=== PATIENT | female | born 1990 | race Caucasian/White ===

== ENCOUNTER 2018-02-12 12:14 | Inpatient (IN) | payer OTHER, SELFPAY ==
[2018-02-12] MEDS: LACTATED RINGERS 1,000 ML 100 ML IV ×2 (12:25→13:40)
--- NOTE | 2018-02-12 12:43 | PM.OBHP.1 ---
OB HPI Date/Time Date of admission: 02/12/18 Date Patient Seen: 02/12/18 Time Patient Seen: 12:31 History of Present Illness Chief complaint: OBSERVATION OF LABOR : 1 Para: 0 Estimated Date of Delivery: 02/12/18 Estimated Gestational Age (weeks): 40 Narrative: YUDELKA CAMPOS is a 27 year old female, at 40 weeks gestation. Dating by LMP, consistent with 14 week US. care with Amada White, LM, CPM. Patient had planned for a home however was transferred to [facility] after failure to progress beyond 9.5 cm for several hours. SROM occurred 02/11/18 at 11:30 AM with clear fluid. Active labor began 02/12/18 at 1:30 AM. By 6:30 AM patient had an anterior lip. Patient and napper grinder tried multiple position changes and reduction of the lip with pushing without success. FHT were reassuring throughout labor. Patient is requesting an epidural. Patient had regular care. She was treated for 4 UTIs during with negative urine cultures in November. No further infections. History of Present care: good care Dating criteria: LMP confirmed by 2nd trimester US Ultrasounds: normal mid trimester US Obstetrical complications: none Medical complications: other (UTI x4) Preadmission Labs Blood type: O (+) positive -: Antibody screen: negative, GBS status: negative, HBsAG: negative, HIV: negative and RPR/VDLR: negative -: Chlamydia screen: not detected and Gonorrhea screen: not detected -: Rubella: immune HCT: 38.2 PAP: Normal 1 hr GTT: 84 Evaluation Evaluation Baseline heart rate: 130 Variability: Moderate (11-25) monitor accelerations: Present monitor decelerations: Absent Contraction Frequency (minutes): 2 Uterine Contraction Intensity: Strong/Firm Category of Tracing: I Cervical dilation (cm): 9 Cervical effacement (%): 100 station: 0 PFSH Medical History Anxiety (Acute) Chicken pox (Acute) Family History Other Diabetes mellitus Hypertension Social History marital status: Smoking Status: Never smoker alcohol intake: former substance use type: does not use Meds Home Medications Medication Instructions Recorded Confirmed Type [id number] fumarate-FA 1 tab PO DAILY 02/12/18 02/12/18 History [] Allergies Allergy/AdvReac Type Severity Reaction Status Date / Time No Known Drug Allergies Allergy Verified 02/12/18 15:39 Review of Systems Review of Systems All systems reviewed & are unremarkable except as noted in HPI and below Exam Const General: healthy appearing and in distress HENMT Head: normal to inspection Ears: hearing grossly normal bilaterally Nose: external nose normal Face and sinus: normal facial exam Mouth: oral mucosae normal Teeth and gingiva: dentition normal Throat: posterior oropharynx normal Eyes General: appearance normal, both eyes and all related structures Neck Neck: normal visual inspection Resp Effort & Inspection: normal respiratory effort Auscultation: clear to auscultation bilaterally Cardio Rate: regular rate Rhythm: regular rhythm Heart Sounds: S1 normal and S2 normal External Female Exam: external appearance normal Presentation: vertex Estimated Weight (lbs): 8 Extrem General: normal to inspection and no pedal edema Objective Labs Result Diagrams: 02/12/18 12:31 Assessment and Plan (1) 40 weeks gestation of : Current visit: Yes Status: Acute Plan: Plan: 27 year old at 40 weeks gestation in active labor with ROM for 24 hours, GBS negative. Unfortunately labor has stalled at 9 cm for several hours outside of the hospital. FHT reassuring. Plan - Epidural now - Will start pitocin if no change with epidural and peanut ball - Consider antibiotics due to >24 hour ROM Back up OB Dr. Kapadia aware of patient due to possible need for section.
[2018-02-12 13:04] LABS: Hematocrit 39.3 % (36-46); Hemoglobin 13.3 g/dL (12.0-16.0); Mean Corpuscular HGB Conc 33.9 % (30-36); Mean Corpuscular Hemoglobin 31.9 PG (26-34); Mean Corpuscular Volume 94.3 fL (80-100); Platelet Count 170 X10^3/uL (150-400); Red Blood Cell Count 4.17 X10^6/uL (4.0-5.2); Red Cell Distribution Width 13.2 % (11.6-14.8); White Blood Cell Count 27.1 X10^3/uL (4.5-11.0)
[2018-02-12 13:05] LABS: Add Manual Diff / Slide Review YES
[2018-02-12 13:25] LABS: Neutrophils Absolute Manual 24119 /uL (3000-5900); RBC Morphology Normal Morphology; Total Cells Counted 100
[2018-02-12] MEDS: CEFAZOLIN 2 GM/100 ML FROZ.PIGGY IV (14:58)
[2018-02-12 15:37] VITALS: BP 150/99
--- NOTE | 2018-02-12 18:54 | PM.OBPRVD ---
Delivery date: 02/12/18 Narrative: VAGINAL DELIVERY NOTE BRIEF HISTORY: Patient is a 27-year-old at 40 weeks who gave on 02/12/18 at 18:12. SHERMAN: 02/12/18 Hospital problems: 40 weeks gestation Prolonged rupture of membranes STAGE I: Labor Spontaneous rupture of membranes occurred 02/11/17 at 11:30 AM with clear fluid. Active labor began 02/12/18 at 1:30 AM. Patient reach 9.5 cm at 6:30 AM. Transferred to [facility] at 12:30 PM. Epidural given. Pitocin started due to lack of cervical change. Cefazolin given due to prolonged ROM. Patient was complete at 16:04. heart tones were category 1 throughout stage 1. STAGE II: Delivery The second stage of labor lasted 2 hours and 8 minutes. Patient developed a temperature of 38.3 at 17:40 and baseline heart rate increased to 160's. Dr. Kapadia was consulted for possible vacuum. Dr. Kapadia arrived and placed a kiwi vacuum after straight catheter to empty the bladder and review of risks of procedure with patient. First vacuum attempt with pushing easily brought the head down. Dr. Crain attempted the vacuum with the next contraction but vacuum popped off. Dr. Kapadia then replaced the vacuum. There were a total of 4 pop offs however infant was successfully delivered over an intact perineum at 18:12. Presentation was direct OA then CEM. Male was vigorous at delivery and placed on mother's abdomen. Cord was clamped and cut after pulsations stopped. Apgars were 8 and 9 at one and five minutes. STAGE III: Placenta/Cord The third stage of labor lasted 4 minutes. Placenta delivered at 18:18 after active management and appeared intact with a 3 vessel cord. Parents requested to save the placenta. Pitocin bolus given after placenta. A small second degree vaginal laceration was repaired with 3-0 vicryl with good hemostasis. Uterine fundus firm. EBL: 300 mL. Needle and sponge counts were correct. The vagina was inspected and no items were left in situ. Patient was doing well with Amrik, her and partner at bedside.
--- NOTE | 2018-02-12 18:57 | P.PCNOB_ITS ---
Delivery date: 02/12/18 Narrative: VAGINAL DELIVERY NOTE BRIEF HISTORY: Patient is a 27-year-old at 40 weeks who gave on 02/12/18 at 18:12. SHERMAN: 02/12/18 Hospital problems: 40 weeks gestation Prolonged rupture of membranes STAGE I: Labor Spontaneous rupture of membranes occurred 02/11/17 at 11:30 AM with clear fluid. Active labor began 02/12/18 at 1:30 AM. Patient reach 9.5 cm at 6:30 AM. Transferred to [facility] at 12:30 PM. Epidural given. Pitocin started due to lack of cervical change. Cefazolin given due to prolonged ROM. Patient was complete at 16:04. heart tones were category 1 throughout stage 1. STAGE II: Delivery The second stage of labor lasted 2 hours and 8 minutes. Patient developed a temperature of 38.3 at 17:40 and baseline heart rate increased to 160's. Dr. Kapadia was consulted for possible vacuum. Dr. Kapadia arrived and placed a kiwi vacuum after straight catheter to empty the bladder and review of risks of procedure with patient. First vacuum attempt with pushing easily brought the head down. Dr. rCain attempted the vacuum with the next contraction but vacuum popped off. Dr. Kapadia then replaced the vacuum. There were a total of 4 pop offs however infant was successfully delivered over an intact perineum at 18: 12. Presentation was direct OA then CEM. Male infant was vigorous at delivery and placed on mother's abdomen. Cord was clamped and cut after pulsations stopped. Apgars were 8 and 9 at one and five minutes. STAGE III: Placenta/Cord The third stage of labor lasted 4 minutes. Placenta delivered at 18:18 after active management and appeared intact with a 3 vessel cord. Parents requested to save the placenta. Pitocin bolus given after placenta. A small second degree vaginal laceration was repaired with 3-0 vicryl with good hemostasis. Uterine fundus firm. EBL: 300 mL. Needle and sponge counts were correct. The vagina was inspected and no items were left in situ. Patient was doing well with Amrik, her and partner at bedside.
[2018-02-13] MEDS: DOCUSATE 250 MG CAPSULE PO (08:45)
[2018-02-13] MEDS: IBUPROFEN 600 MG TABLET PO ×2 (08:45→14:37)
[2018-02-13] MEDS: DERMOPLAST SPRAY 20% 60 ML 1 SPRAY TOP (13:40)
--- NOTE | 2018-02-13 17:19 | P.DS_ITS ---
Discharge Providers Date of admission: 02/12/18 12:14 Consults: 02/12/18 22:30 Consult to Field Marketing Lead Routine Comment: Discharge provider: Rachel Crain DO Summary Date Patient Seen: 02/13/18 Time Patient Seen: 13:00 Hospital Course: Patient is a 27-year-old G1 now P1 who delivered at 40 weeks gestation on at 6:12 p.m. via vacuum assisted vaginal delivery. Patient had planned for a home however transferred to [facility] after labor stalled at 9.5 cm. Upon admission to the hospital she received an epidural for pain control and Pitocin augmentation. Rupture of membranes occurred 24 hr prior to hospital admission so patient received 2 g of cefazolin. She progressed to complete and pushed for 1.5 hr when she developed a temperature of 38.3? and tachycardia. Dr. Kapadia was called for consultation and delivered the infant with a vacuum. Infant was vigorous at delivery and did not require resuscitation. Maternal temperature immediately after delivery was 38.9 so the decision was made to continue antibiotics for 24 hr. Patient did not have further fevers during her stay. course was uncomplicated. Bleeding was moderate. Pain well controlled with minimal ibuprofen. She was ambulating , eating and voiding without difficulty. reportedly going well. Counseled patient to call for fevers, bleeding through more than a pad an hour or severe pain. She will follow up in clinic in six weeks. Exam Temperature 97.2?, blood pressure 113/69, heart rate 94, respirations 14 General: Awake and alert, no acute distress. HEENT: NCAT, EOMI, moist oral mucosa CV: Regular rate and rhythm, no murmurs, rubs or gallops Lungs: CTAB, no wheezes, rales, or rhonchi Abdomen: Soft, nontender; bowel tones active; uterus firm 1 cm below umbilicus Extremities: Warm, no edema, 2+ pedal pulses bilaterally Discharge Diagnosis (1) 40 weeks gestation of : Status: Acute Time Spent with Patient Total time spent providing and/or coordinating discharge services: Objective Labs Result Diagrams: 02/12/18 12:31 Discharge Plan Discharge Plan Patient Disposition: Home, Self-Care Discharge Med Rec/Prescriptions Prescriptions: New docusate sodium 250 mg Capsule 250 mg PO DAILY Qty: 30 RF: 0 Continue [id number] fumarate-FA [] 28-800 mg-mcg Tablet 1 tab PO DAILY RF: 0 Follow up/Referrals: Rachel Crain DO [Physician] - 6 Weeks (Please call the clinic to schedule appt [facility] [phone]) Visit Report/Discharge Packet Stand Alone Forms: Discharge: Care Visit Report Forms: Stroke Signs & Symptoms Discharge Data Attending Provider: Rachel Crain Admit Date/Time: 02/12/18 12:14 Discharges patient from system. Discharge Date/Time: 02/13/18 20:06
[2018-02-13 18:11] VITALS: BP 113/69; PULSE 94; RESP 16; TEMP 36.2
== END 2018-02-13 20:06 | disposition home or self-care (01) | DRG 775 ==
PROVIDERS: Admitting Provider Family Medicine; Visit Provider Family Medicine
DX: O62.1 Secondary uterine inertia (principal); Z3A.40 40 weeks gestation of pregnancy; Z37.0 Single live birth; O70.1 Second degree perineal laceration during delivery
CPT/HCPCS: 01967; 59050; 59409; 76815; 85025; 86850; 86900; 86901; 99222; 99238; G0379; J0690

== ENCOUNTER → 2020-06-04 15:09 | Outpatient (CLI) | payer BC, SELFPAY ==
--- NOTE | 2020-06-04 | DI.US.S_ITS ---
PROCEDURE: US OB >= 14 WEEKS FETUS INDICATIONS: 20 week Anatomy scan OUTSIDE/PRIOR DATING DATA: Last menstrual period (LMP): 01/17/2020. LMP-based estimated date of delivery (SHERMAN): 10/23/2020. First dating scan (date and location): 06/04/2020 at [facility]. Estimated date of delivery (SHERMAN) from first dating scan: 10/20/2020. TECHNIQUE: Real-time scanning was performed of the fetus, with image documentation and biometric measurements. Endovaginal scanning: Not performed. COMPARISON: None. FINDINGS: General: A single living intrauterine gestation is present. Presentation: Cephalic Placenta: Placental position is anterior. The lower placental edge is located approximately 7 mm from the internal cervical os. Amniotic fluid index: 15.6 cm, normal range is 5-24 cm. heart rate: 149 beats per minute. Maternal cervical canal: 3.5 cm long. Normal lower limit is 2.5 cm. There is [id number] right hydronephrosis. biometrics: Biparietal diameter: 4.7 cm, 20 weeks 1 day Head circumference: 17.8 cm, 20 weeks 2 days Abdominal circumference: 15.5 cm, 20 weeks 5 days Femur length: 3.2 cm, 20 weeks 2 days Estimated gestational age from initial scan: not applicable. Composite gestational age from present scan: 20 weeks 2 days Estimated weight and percentile: 349 g, 74th percentile Measurement variability for biometric dating: +/- 7 days from 14 weeks to 15 weeks 6 days gestation, +/- 10 days from 16 weeks to 21 weeks 6 days gestation, +/- 2 weeks from 22 weeks to 27 weeks 6 days gestation, +/- 3 weeks for 28 weeks gestation or later. weight reference: 4500 g or EFW >90/95% is considered macrosomia or large for gestational age. EFW <10% is small for gestational age. EFW 5% or less is considered intra-uterine growth restriction. Anatomic survey: Neuro: Ventricles are non-dilated at less than 10 mm. Cisterna magna is normal at 3-11 mm. Cerebellum is normal in size and morphology. Nuchal skin fold: Normal at less than 6 mm between 14-21 weeks gestational age. Face: Nose and lips, facial profile are normal. Spine: No evidence for spina bifida. Heart: 4-chambered heart is present, with normal ventricular outflow tracts. Diaphragm: Diaphragm is intact. Stomach: Left-sided stomach is present. Kidneys: No hydronephrosis. Normal is less than 5 mm in 2nd trimester, less than 7 mm in 3rd trimester. Cord: 3-vessel cord has orthotopic insertion. Bladder: Normal in size. Extremities: All 4 extremities identified. IMPRESSION: 1. Single live intrauterine . Normal anatomic survey. 2. Low lying placenta located less than 1 cm from the internal cervical os. Recommend continued attention on follow-up exams. 3. [id number] right hydronephrosis. Dictated by: Jaylen Gama M.D. on 06/04/2020 at 18:02 Approved by: Jaylen Gama M.D. on 06/04/2020 at 18:11
== END ==
PROVIDERS: PCP Midwife; Referring Provider Midwife; Visit Provider Midwife
DX: Z36.89 Encounter for other specified antenatal screening (principal); Z3A.20 20 weeks gestation of pregnancy
CPT/HCPCS: 76811

== ENCOUNTER 2020-10-14 17:14 | Observation (INO) | payer BC, SELFPAY ==
[2020-10-14] VITALS (9 sets, daily range): BP systolic 108–152; BP diastolic 70–100; PULSE 72–94; RESP 16–20; TEMP 36.4–37.1; O2SAT 96–100; BMI 30.6
--- NOTE | 2020-10-14 17:19 | PM.HP.1 ---
History of Present Illness History of Present Illness Date Patient Seen: 10/14/20 Time Patient Seen: 17:45 Chief complaint: hypertension Narrative: Patient is a 30-year-old 4 days after uncomplicated spontaneous vaginal delivery at 38 weeks and 2 days at [facility] in [place]. She was followed Amada White CNM throughout her . At her 38 week OB appointment her blood pressure was mildly elevated at the 140s over 90s. Her staff air defense officer encouraged efforts to induce labor. Membranes were swept and she was given castor oil. She went into labor on 10/09/20 and labored at the center in [place]. She made it to complete and pushing however descent stalled so she was transferred to [facility]. She went on to receive an epidural and eventually delivered a vigorous female in the direct occiput posterior position. blood pressures were reportedly mildly elevated however preeclampsia labs normal. She discharged home just over 24 hours after delivery. Yesterday her staff air defense officer checked her at home and her blood pressure was again mildly elevated in the 140s over 90s. Her staff air defense officer advised her to check her blood pressure later yesterday and it was 150/100. Yesterday she also had a headache and some swelling in her legs. Today she brought her to clinic for a check and requested to be seen for blood pressure as well. Her initial blood pressure in clinic was 174/96. It came down to 150/92. Today she rates her headache at a 5/10 but states the pain varies. Denies right upper quadrant pain or vision changes. She continues to have edema in her legs but feels that it is improving. She is without difficulty and is doing well. Patient History Medical History Anxiety Chicken pox Spontaneous vaginal delivery Family & Social History Family History Other Diabetes mellitus Hypertension Tobacco & Substance use: Smoking Status Never smoker alcohol intake former Meds Home Medications and Allergies Home Medications Medication Instructions Recorded Confirmed Type [id number] fumarate-FA 1 tab PO DAILY 02/12/18 02/12/18 History [] docusate sodium 250 mg PO DAILY #30 cap 02/13/18 Rx Allergies Allergy/AdvReac Type Severity Reaction Status Date / Time No Known Drug Allergies Allergy Verified 02/12/18 15:39 Review of Systems Review of Systems ROS: Yes All systems reviewed with the patient and are negative except as otherwise documented Exam Narrative Exam Narrative: General appearance: Well-appearing, NAD Head: Normocephalic, atraumatic, without obvious abnormality. Eyes: Conjunctivae/corneas clear. PERRL, EOM's intact. Ears: External ears normal bilaterally. Lungs: Clear to auscultation bilaterally, no wheezes or crackles. Heart: Regular rate and rhythm, S1, S2 normal, no murmur. Abdomen: Bowel tones active x4. Soft, nontender, nondistended. Extremities: Extremities normal, atraumatic, trace edema bilaterally. Neurologic: Normal coordination and gait. 3/4 patellar reflexes bilaterally. No clonus. Objective Labs Result Diagrams: 10/14/20 17:28 10/14/20 17:28 Assessment & Plan Assessment & Plan narrative: 30 year old 4 days after at 38 weeks and 2 days now with hypertension, edema and headache concerning for pre-eclampsia. Initial blood pressures in the center were 150s over 90s which came down to 130s over 90s. She reports her headache is worse in the center than it was in the clinic. Plan Appreciate consultation and recommendations by Dr. Wheeler. Patient will be admitted for serial blood pressures and stat labs for preeclampsia. Patient and her are aware of the possible need for magnesium should she develop severe features or labs return abnormal. Hopefully she can be monitored overnight and potentially discharge home in the morning if workup is reassuring.
[2020-10-14 17:41] LABS: Add Manual Diff / Slide Review NO; Basophils Absolute Auto 100 /uL (0-100); Basophils Percent Auto 0.5 % (0-2); Eosinophils Absolute Auto 100 /uL (0-450); Eosinophils Percent Auto 1.1 % (2-4); Hematocrit 39.5 % (36-46); Hemoglobin 13.1 g/dL (12.0-16.0); Lymphocytes Absolute Auto 1900 /uL (1100-4500); Lymphocytes Percent Auto 16.8 % (25-40); Mean Corpuscular HGB Conc 33.1 % (30-36); Mean Corpuscular Hemoglobin 31.3 PG (26-34); Mean Corpuscular Volume 94.5 fL (80-100); Monocytes Absolute Auto 500 /uL (0-900); Monocytes Percent Auto 4.9 % (3-14); Neutrophils Absolute Auto 8500 /uL (1500-7000); Neutrophils Percent Auto 76.7 % (50-75); Platelet Count 213 X10^3/uL (150-400); Red Blood Cell Count 4.18 X10^6/uL (4.0-5.2); Red Cell Distribution Width 13.3 % (11.6-14.8); White Blood Cell Count 11.1 X10^3/uL (4.5-11.0)
[2020-10-14 17:53] LABS: Alanine Aminotransferase 37 IU/L (<35); Albumin 4.1 g/dL (3.5-5.0); Albumin Globulin Ratio 1.2 (1.0-2.8); Alkaline Phosphatase 178 U/L (38-126); Aspartate Aminotransferase 43 IU/L (14-36); BUN Creatinine Ratio 19.4 (6-22); Bilirubin Total 0.2 mg/dL (0.2-1.3); Blood Urea Nitrogen 12 mg/dL (7-17); Calcium 9.8 mg/dL (8.4-10.2); Carbon Dioxide 24 mmol/L (22-32); Chloride 107 mmol/L (98-107); Estimated Glomerular Filt Rate > 60.0 mL/min (>60); Globulin 3.4 g/dL (1.7-4.1); Glucose 98 mg/dL (70-100); HEMOLYSIS < 15 (0-50); Sodium 139 mmol/L (137-145); Total Protein 7.5 g/dL (6.3-8.2)
[2020-10-14] MEDS: ACETAMINOPHEN 325 MG TABLET 650 MG PO (17:56)
[2020-10-14] MEDS: NIFEdipine 10 MG CAPSULE PO (17:56)
--- NOTE | 2020-10-14 17:59 | P.CONS_ITS ---
History of Present Illness Consult details Date Patient Seen: 10/14/20 Time Patient Seen: 18:09 Chief complaint: hypertension Reason for consult: gestational hypertension versus preeclampsia Requesting provider: Rachel Crain Narrative: This patient is a 30-year-old para 2 four days status post uncomplicated vaginal delivery after induction of labor at 38 weeks for gestational hypertension, who presented to Dr. Crain's office for a checkup and reported signs and symptoms of preeclampsia. The patient's was managed by midwives working out of [facility] in [place], [place], which is where she delivered. She reports that her blood pressures prior to delivery were 130s over 80s, and that she had intermittent headaches but no other symptoms. Her had previously been uncomplicated, and these blood pressures developed in her 38th week. Baby was born weighing 7 lb 8 oz, and the delivery was uncomplicated. She was normotensive after delivery and discharged home on day 1. On day 3, she developed a headache and had blood pressures of 140s to 150s over 90s to 100s at home. She called her centrifugal separator who had her monitor her blood pressure at home, and when it remained elevated, recommended that the patient establish care with Dr. Crain at the baby's scheduled visit today. The patient's blood pressures were elevated as high as 170s over 100s in clinic, though severe range pressures were not sustained, and the patient was sent to the Center. She reports 5/10 headache but no visual changes, shortness of breath, right upper quadrant pain, or hand or face swelling. She has some leg swelling that has been present and improving since the delivery. She has not taken anything for her headache, and is not on any antihypertensive medication. She denies any complications in her 1st , a term vaginal delivery, and denies any history of hypertension prior to last week. She denies any contributory medical, surgical, family, or social history. Meds Home Medications and Allergies Home Medications Medication Instructions Recorded Confirmed Type [id number] fumarate-FA 1 tab PO DAILY 02/12/18 02/12/18 History [] docusate sodium 250 mg PO DAILY #30 cap 02/13/18 Rx Allergies Allergy/AdvReac Type Severity Reaction Status Date / Time No Known Drug Allergies Allergy Verified 02/12/18 15:39 Review of Systems Constitutional Constitutional: Reports system reviewed and no additional complaints, except as documented Cardiovascular Cardiovascular: Reports system reviewed and no additional complaints, except as documented Respiratory Respiratory: Reports system reviewed and no additional complaints, except as documented Gastrointestinal Gastrointestinal: Reports system reviewed and no additional complaints, except as documented Genitourinary Genitourinary: Reports system reviewed and no additional complaints, except as documented Musculoskeletal Musculoskeletal: Reports system reviewed and no additional complaints, except as documented Neurologic Neurologic: Reports as per HPI Exam Vital Signs (past 8 hours): 130s-150s/80s-90s in center, HR 80s Narrative Exam Narrative: Patient resting in bed, and accompanied by ralph yun. Patient alert and oriented x3, generally well appearing. Const General: cooperative, healthy appearing and comfortable Resp Effort & Inspection: normal respiratory effort Auscultation: clear to auscultation bilaterally Cardio Rate: regular rate Rhythm: regular rhythm GI Palpation: soft and No tender Neuro General: patient alert, patient awake, patient oriented x3 and CN's II-XI intact bilaterally DTR's: Rt Patellar: 2+ and Lt Patellar: 2+ Extrem Right upper extremity: normal to inspection Left upper extremity: normal to inspection Right lower extremity: edema Details: 2+ Left lower extremity: edema Details: 2+ Objective Labs Result Diagrams: 10/14/20 17:28 10/14/20 17:28 Labs: Laboratory Results - last 24 hr 10/14/20 10/14/20 17:28 17:28 WBC 11.1 H RBC 4.18 Hgb 13.1 Hct 39.5 MCV 94.5 MCH 31.3 MCHC 33.1 RDW 13.3 Plt Count 213 Neut % (Auto) 76.7 H Lymph % (Auto) 16.8 L Bland % (Auto) 4.9 Eos % (Auto) 1.1 L Baso % (Auto) 0.5 Neut # (Auto) 8500 H Lymph # (Auto) 1900 Bland # (Auto) 500 Eos # (Auto) 100 Baso # (Auto) 100 Sodium 139 Potassium 4.0 Chloride 107 Carbon Dioxide 24 BUN 12 Creatinine 0.62 Estimated GFR > 60.0 BUN/Creatinine Ratio 19.4 Glucose 98 Calcium 9.8 Total Bilirubin 0.2 AST 43 H ALT 37 H Alkaline Phosphatase 178 H Total Protein 7.5 Albumin 4.1 Globulin 3.4 Albumin/Globulin Ratio 1.2 Assessment & Plan Assessment & Plan narrative: This patient meets diagnostic criteria for gestational hypertension. The patient's headache has not been treated, and she has no lab abnormalities on bloodwork or other severe features at this time. Her blood pressures are elevated but have not been in the severe range in the Center. We discussed straight catheterization to assess proteinuria in the tting of [facility], and this will be deferred at this time due to patient comfort. The patient's blood pressures are currently being monitored every 15 minutes, and when her initial blood pressures were 150s over 90s, she was administered 10 mg of immediate release nifedipine. Right now, the patient is for 650mg tylenol and 10mg reglan, both PO, for her headache. She will be monitored with serial blood pressures and PIH labs, with further decision about severe features and therefore magnesium pending. The above was discussed with the patient and her partner at length, and we discussed the spectrum of PIH from gestational hypertension to preeclampsia with severe features and the pathophysiology of the disease. The patient and her partner vocalized understanding. - Patient for monitoring at least overnight - PIH labs in AM - BPs q15 for now, can space based on trend - 30mg XL nifedipine in AM if IR dose tolerated - Regular diet - Close monitoring for severe signs/symptoms - Notify MD if BP over 155 systolic or 105 diastolic
[2020-10-14] MEDS: METOCLOPRAMIDE HCL 10 MG TABLET PO (18:06)
[2020-10-14 18:43] LABS: COVID19 -Nasal RAPID Negative (Negative)
--- NOTE | 2020-10-14 21:05 | PC.NURSE ---
Patient BP has come down, her AGGARWAL is gone. Patient wants to know if she can go home. We discussed what we are watching for. A call placed to Dr Wheeler, She perfers the patient to stay. Discussed with patient and she said she will but she wants the IV removed. Dr Wheeler agreed.
[2020-10-14 23:17] LABS: Add Manual Diff / Slide Review NO; Basophils Absolute Auto 100 /uL (0-100); Basophils Percent Auto 0.6 % (0-2); Eosinophils Absolute Auto 100 /uL (0-450); Eosinophils Percent Auto 1.3 % (2-4); Hematocrit 35.7 % (36-46); Lymphocytes Absolute Auto 2500 /uL (1100-4500); Lymphocytes Percent Auto 21.8 % (25-40); Mean Corpuscular HGB Conc 33.5 % (30-36); Mean Corpuscular Hemoglobin 31.5 PG (26-34); Monocytes Absolute Auto 900 /uL (0-900); Monocytes Percent Auto 7.4 % (3-14); Neutrophils Absolute Auto 7900 /uL (1500-7000); Neutrophils Percent Auto 68.9 % (50-75); Platelet Count 195 X10^3/uL (150-400); Red Blood Cell Count 3.79 X10^6/uL (4.0-5.2); Red Cell Distribution Width 13.4 % (11.6-14.8); White Blood Cell Count 11.5 X10^3/uL (4.5-11.0)
[2020-10-14 23:26] LABS: Alanine Aminotransferase 31 IU/L (<35); Albumin 3.7 g/dL (3.5-5.0); Albumin Globulin Ratio 1.2 (1.0-2.8); Alkaline Phosphatase 151 U/L (38-126); Aspartate Aminotransferase 35 IU/L (14-36); Bilirubin Total 0.1 mg/dL (0.2-1.3); Blood Urea Nitrogen 14 mg/dL (7-17); Calcium 9.6 mg/dL (8.4-10.2); Carbon Dioxide 23 mmol/L (22-32); Chloride 108 mmol/L (98-107); Estimated Glomerular Filt Rate > 60.0 mL/min (>60); Globulin 3.1 g/dL (1.7-4.1); Glucose 104 mg/dL (70-100); HEMOLYSIS < 15 (0-50); Lactate Dehydrogenase 511 U/L (313-618); Potassium 4.2 mmol/L (3.4-5.1); Sodium 138 mmol/L (137-145); Total Protein 6.8 g/dL (6.3-8.2); Uric Acid 4.9 mg/dL (2.5-6.2)
--- NOTE | 2020-10-14 23:29 | PC.NURSE ---
Patient states her headache came back starting at 2230 tonight, rated her pain at 3/10. See worklist for vital signs.
[2020-10-15] VITALS (9 sets, daily range): BP systolic 140–161; BP diastolic 90–102; PULSE 72–109; RESP 15; TEMP 36.7–37; O2SAT 99
[2020-10-15] MEDS: ACETAMINOPHEN 325 MG TABLET 650 MG PO ×2 (00:05→08:51)
[2020-10-15] MEDS: IBUPROFEN 600 MG TABLET PO ×2 (00:05→08:50)
[2020-10-15] MEDS: NIFEdipine 30 MG TAB ER PO (05:27)
[2020-10-15 05:50] LABS: Alanine Aminotransferase 27 IU/L (<35); Albumin 3.4 g/dL (3.5-5.0); Albumin Globulin Ratio 1.3 (1.0-2.8); Alkaline Phosphatase 135 U/L (38-126); Aspartate Aminotransferase 29 IU/L (14-36); BUN Creatinine Ratio 22.7 (6-22); Bilirubin Total 0.2 mg/dL (0.2-1.3); Blood Urea Nitrogen 15 mg/dL (7-17); Carbon Dioxide 26 mmol/L (22-32); Chloride 107 mmol/L (98-107); Estimated Glomerular Filt Rate > 60.0 mL/min (>60); Globulin 2.7 g/dL (1.7-4.1); Glucose 92 mg/dL (70-100); HEMOLYSIS < 15 (0-50); Potassium 3.9 mmol/L (3.4-5.1); Sodium 138 mmol/L (137-145); Total Protein 6.1 g/dL (6.3-8.2)
--- NOTE | 2020-10-15 10:07 | PM.DS.1 ---
History of Present Illness History of Present Illness Chief complaint: hypertension Narrative: Patient is a 30-year-old 4 days after uncomplicated spontaneous vaginal delivery at 38 weeks and 2 days at [facility] in [place]. She was followed Amada White CNM throughout her . At her 38 week OB appointment her blood pressure was mildly elevated at the 140s over 90s. Her branch customer service representative encouraged efforts to induce labor. Membranes were swept and she was given castor oil. She went into labor on 10/09/20 and labored at the center in [place]. She made it to complete and pushing however descent stalled so she was transferred to [facility]. She went on to receive an epidural and eventually delivered a vigorous female infant in the direct occiput posterior position. blood pressures were reportedly mildly elevated however preeclampsia labs normal. She discharged home just over 24 hours after delivery. Yesterday her branch customer service representative checked her at home and her blood pressure was again mildly elevated in the 140s over 90s. Her branch customer service representative advised her to check her blood pressure later yesterday and it was 150/100. Yesterday she also had a headache and some swelling in her legs. Today she brought her to clinic for a check and requested to be seen for blood pressure as well. Her initial blood pressure in clinic was 174/96. It came down to 150/92. Today she rates her headache at a 5/10 but states the pain varies. Denies right upper quadrant pain or vision changes. She continues to have edema in her legs but feels that it is improving. She is without difficulty and is doing well. Discharge Providers Provider Date of admission: 10/14/20 17:14 Discharge Date: 10/15/20 Primary care physician: Amada White CNM Discharge provider: Rachel Crain DO Summary Hospital Course Discharge Diagnosis: -induced hypertension Hospital Course: Patient was admitted for serial blood pressures and PIH labs. Labs were remarkable for mildly elevated AST and ALT though not meeting criteria for preeclampsia. Patient declined a straight cath for urine protein so diagnosis of preeclampsia verses gestational hypertension was not completely defined. Her headache on admission resolved after Tylenol and Reglan and did not return. Blood pressure improved nicely after nifedipine trended back up after the effect wore off. Labs were trended overnight and mildly elevated transaminases trended to normal. She received 1 dose of long-acting nifedipine with mild improvement in her blood pressure though still elevated. She denied headache, vision changes, right upper quadrant pain or edema. She and her were very eager to return home. Dr. Wheeler saw her this morning and recommended staying in the hospital a bit longer until her blood pressures normalized however they declined. Dr. Wheeler recommended long-acting nifedipine 30 mg twice a day until she follows up in clinic next week and reviewed strict return precautions. Patient was advised to call for blood pressures greater than 160/110 or symptoms of preeclampsia (headaches unresponsive to Tylenol, visual changes or spots, malaise or nausea, right upper quadrant pain, chest pain or trouble breathing, or any other concerning symptoms.) The patient and her expressed their understanding. Follow-up in clinic as scheduled next week. Status at Discharge Overall status at discharge: patient is back to baseline Time Spent with Patient Time spent: Less than 30 minutes Exam Vital Signs (past 8 hours): - 10/15/20 04:00 10/15/20 06:35 10/15/20 07:34 Temperature 98.0 F Pulse Rate 72 109 H Respiratory Rate 15 Blood Pressure 159/102 H 143/99 H 161/97 H Pulse Oximetry 99 10/15/20 07:35 10/15/20 08:50 10/15/20 08:51 Temperature 98.6 F 98.6 F Pulse Rate 100 H Respiratory Rate Blood Pressure 150/95 H Pulse Oximetry 10/15/20 09:00 10/15/20 09:59 Temperature Pulse Rate Respiratory Rate Blood Pressure 140/90 148/96 H Pulse Oximetry Oxygen Flow Rate 0 Narrative Exam Narrative: General appearance: Well-appearing, NAD Head: Normocephalic, atraumatic, without obvious abnormality. Eyes: Conjunctivae/corneas clear. PERRL, EOM's intact. Ears: External ears normal bilaterally. Lungs: Clear to auscultation bilaterally, no wheezes or crackles. Heart: Regular rate and rhythm, S1, S2 normal, no murmur. Extremities: Extremities normal, atraumatic, no edema. Neurologic: Normal coordination and gait. 2/4 patellar reflexes bilaterally. Objective Labs Result Diagrams: 10/14/20 23:05 10/15/20 05:30 Labs: Laboratory Results - last 24 hr 10/14/20 10/14/2010/14/21 17:28 17:28 18:15 WBC 11.1 H RBC 4.18 Hgb 13.1 Hct 39.5 MCV 94.5 MCH 31.3 MCHC 33.1 RDW 13.3 Plt Count 213 Neut % (Auto) 76.7 H Lymph % (Auto) 16.8 L [place] % (Auto) 4.9 Eos % (Auto) 1.1 L Baso % (Auto) 0.5 Neut # (Auto) 8500 H Lymph # (Auto) 1900 [place] # (Auto) 500 Eos # (Auto) 100 Baso # (Auto) 100 Sodium 139 Potassium 4.0 Chloride 107 Carbon Dioxide 24 BUN 12 Creatinine 0.62 Estimated GFR > 60.0 BUN/Creatinine Ratio 19.4 Glucose 98 Uric Acid Calcium 9.8 Total Bilirubin 0.2 AST 43 H ALT 37 H Alkaline Phosphatase 178 H Lactate Dehydrogenase Total Protein 7.5 Albumin 4.1 Globulin 3.4 Albumin/Globulin Ratio 1.2 SARS-CoV-2 (PCR) Negative 10/14/20 10/14/20 10/15/20 23:05 23:05 05:30 WBC 11.5 H RBC 3.79 L Hgb 12.0 Hct 35.7 L MCV 94.0 MCH 31.5 MCHC 33.5 RDW 13.4 Plt Count 195 Neut % (Auto) 68.9 Lymph % (Auto) 21.8 L [place] % (Auto) 7.4 Eos % (Auto) 1.3 L Baso % (Auto) 0.6 Neut # (Auto) 7900 H Lymph # (Auto) 2500 [place] # (Auto) 900 Eos # (Auto) 100 Baso # (Auto) 100 Sodium 138 138 Potassium 4.2 3.9 Chloride 108 H 107 Carbon Dioxide 23 26 BUN 14 15 Creatinine 0.70 0.66 Estimated GFR > 60.0 > 60.0 BUN/Creatinine Ratio 20.0 22.7 H Glucose 104 H 92 Uric Acid 4.9 Calcium 9.6 9.0 Total Bilirubin 0.1 L 0.2 AST 35 29 ALT 31 27 Alkaline Phosphatase 151 H 135 H Lactate Dehydrogenase 511 Total Protein 6.8 6.1 L Albumin 3.7 3.4 L Globulin 3.1 2.7 Albumin/Globulin Ratio 1.2 1.3 SARS-CoV-2 (PCR) [facility] Medical History Anxiety Chicken pox Spontaneous vaginal delivery Family History Other Diabetes mellitus Hypertension Social History marital status: household members: spouse and children Smoking Status: Never smoker alcohol intake: former substance use type: does not use Discharge Plan Discharge Plan Patient Disposition: Home Discharge orders & Medications Prescriptions: New nifedipine 30 mg tablet extended release 30 mg PO BID Qty: 60 RF: 1 metoclopramide HCl [Reglan] 10 mg tablet 10 mg PO Q6H PRN (Reason: headache) Qty: 30 RF: 0 Continued 28-800 mg-mcg Tablet 1 tab PO DAILY RF: 0 docusate sodium 250 mg Capsule 250 mg PO DAILY Qty: 30 RF: 0 Follow up/Referrals: Rachel Crain DO [Physician] - 3-5 Days (Please follow up with Dr. Crain on October 21 at 3:30pm. If you have any questions/concerns or need to reschedule please call .) Amada White CNM [Primary Care Provider] - Diet/Activity/Treatments Diet: Regular Activity: If you have blood pressures over 160/110, headaches, visual changes, increasing swelling, increasing abdominal pain, trouble breathing or chest pain, or any other concerning symptoms or questions, call [phone] and speak to the physician electronic masking system operator or come to the emergency room. Skin/Wound/Dressing Care Report to your healthcare provider any signs of infection, such as:: chills, fever, night sweats, increased pain, unusual drainage and unusual redness Visit Report/Discharge Packet Visit Report Forms: Patient Portal/API, Stroke Signs & Symptoms Discharge Data Primary Care Provider: Amada White Attending Provider: Rachel Crain Admit Date/Time: 10/14/20 17:14 Discharges patient from system. Discharge Date/Time: 10/15/20 11:40 Quality VTE Deep Vein Thrombosis/Pulmonary Embolism Present on Admission: No MIPS - Admit Advanced Care Plan / Current Medications Measures: #47 ? Advanced Care Plan Clinician documentation instruction: document at admission. [] I confirmed that the patient's Advance Care Plan is present, code status is documented, or surrogate decision maker is listed in the patient?s medical record. [SATISFIES MIPS PERFORMANCE] If Yes, Stop Here [] The patient?s Advance Care plan is not present because: (select) [MIPS PERFORMANCE EXCEPTION/EXCLUSION] [] I confirmed today that the patient does not wish or was not able to name a surrogate decision maker or provide an Advance Care Plan. [] Hospice care is currently being provided or has been provided this calendar year [] I did NOT confirm today the presence of an Advance Care Plan or surrogate decision maker documented within the patient's medical record. [DOES NOT SATISFY MIPS PERFORMANCE] #130 - Documentation of Current Medications in the Medical Record Clinician documentation instruction: use macro the first time you see a patient. [] I have utilized all available immediate resources to obtain, update, or review the patient?s current medications. [SATISFIES MIPS PERFORMANCE] If Yes, Stop Here [] The patient is not eligible for medication reconciliation; the patient is in an emergent medical situation where delaying treatment would jeopardize the patient?s health. [MIPS PERFORMANCE EXCEPTION/EXCLUSION] [] I did NOT confirm, update or review the patient's current list of medications today. [DOES NOT SATISFY MIPS PERFORMANCE] MIPS - CL Central Venous Catheter Placement Measure: #76 ? Prevention of Central Venous Catheter (CVC) ? Related Bloodstream Infection Clinician documentation instruction: use macro every time you place a central line. [] All elements of Maximal Sterile Barrier Technique, including hand hygiene, skin prep, and sterile ultrasound technique (if used) were followed. [SATISFIES MIPS PERFORMANCE] If Yes, Stop Here [] If ?No?, the medical reason all elements were NOT used for medical reason [] (ex. emergent condition). [] Maximal Sterile Barrier Technique was not followed, no reason provided [DOES NOT SATISFY MIPS PERFORMANCE] MIPS - DC Heart Failure Measures: #5 - Heart Failure (HF): Angiotensin-Converting Enzyme (TONE) Inhibitor or Angiotensin Receptor Lambert (ARB) Therapy for Left Ventricular Systolic Dysfunction (LVSD) and #8 - Heart Failure (HF): Beta-Lambert Therapy for Left Ventricular Systolic Dysfunction (LVSD) Clinician documentation instruction: use macro at every CHF discharge. [] The patient has current or prior documentation of left ventricular ejection fraction (LVEF) less than 40%, or moderate or severely depressed left ventricular systolic function. Answer both: [SATISFIES MIPS PERFORMANCE] [] The patient was prescribed or already taking an Angiotensin-Converting Enzyme (TONE) Inhibitor, or Angiotensin Receptor Lambert (ARB). [] The patient was prescribed or already taking a beta-lambert. If Yes to Both, Stop Here [] Patient not prescribed/taking: [MIPS PERFORMANCE EXCEPTION/EXCLUSION] [] TONE or ARB for medical/patient/system reason(s) including [] (ex. allergy, intolerance, contraindication) [] Beta-lambert for medical/patient/system reason(s) including [] (ex. allergy, intolerance, contraindication) [] Patient not prescribed/taking: [DOES NOT SATISFY MIPS PERFORMANCE] [] TONE or ARB, no reason given [] Beta-lambert, no reason given
--- NOTE | 2020-10-15 10:15 | PM.OBPN.1 ---
Subjective - OB Subjective Patient comments: no complaints Narrative: Patient is non day 5 status post vaginal delivery at outside facility after induction of labor for? Gestational hypertension. Patient admitted for evaluation for gestational hypertension and blood pressure control. Declined straight cath specimen for urine protein, clean-catch impossible due to lochia. Labs this morning normal, patient reports feeling well. Patient's blood pressure responded well to initial dose of immediate release nifedipine, has now worn off and patient has received long-acting nifedipine which has taking good effect. Patient denies headache, visual changes, chest pain, right upper quadrant pain, abdominal pain, malaise. Reports lower extremity swelling has nearly resolved, denies facial or hand swelling. Patient and partner strongly desired discharge. Discussed benefits of stay for improved confirmation of blood pressure control on 30 mg XL nifedipine b.i.d., patient and partner vocalized understanding but strongly desire discharge. Patient declines Hep-Lock IV indwelling. Date Patient Seen: 10/15/20 Time Patient Seen: 09:45 Exam Vital Signs (past 8 hours): - 10/15/20 04:00 10/15/20 06:35 10/15/20 07:34 Temperature 98.0 F Pulse Rate 72 109 H Respiratory Rate 15 Blood Pressure 159/102 H 143/99 H 161/97 H Pulse Oximetry 99 10/15/20 07:35 10/15/20 08:50 10/15/20 08:51 Temperature 98.6 F 98.6 F Pulse Rate 100 H Respiratory Rate Blood Pressure 150/95 H Pulse Oximetry 10/15/20 09:00 10/15/20 09:59 Temperature Pulse Rate Respiratory Rate Blood Pressure 140/90 148/96 H Pulse Oximetry Oxygen Flow Rate 0 Const General: cooperative, healthy appearing and comfortable Resp Effort & Inspection: normal respiratory effort Auscultation: clear to auscultation bilaterally Cardio Rate: regular rate Rhythm: regular rhythm GI Palpation: soft and No tender Extrem General: normal to inspection Other: Lower extremity reflexes 2+ bilaterally, 1+ bilateral lower extremity edema. No hand or facial edema evident. Objective Labs Result Diagrams: 10/14/20 23:05 10/15/20 05:30 Labs: Laboratory Results - last 24 hr 10/14/20 10/14/20 10/14/20 17:28 17:28 18:15 WBC 11.1 H RBC 4.18 Hgb 13.1 Hct 39.5 MCV 94.5 MCH 31.3 MCHC 33.1 RDW 13.3 Plt Count 213 Neut % (Auto) 76.7 H Lymph % (Auto) 16.8 L [place] % (Auto) 4.9 Eos % (Auto) 1.1 L Baso % (Auto) 0.5 Neut # (Auto) 8500 H Lymph # (Auto) 1900 [place] # (Auto) 500 Eos # (Auto) 100 Baso # (Auto) 100 Sodium 139 Potassium 4.0 Chloride 107 Carbon Dioxide 24 BUN 12 Creatinine 0.62 Estimated GFR > 60.0 BUN/Creatinine Ratio 19.4 Glucose 98 Uric Acid Calcium 9.8 Total Bilirubin 0.2 AST 43 H ALT 37 H Alkaline Phosphatase 178 H Lactate Dehydrogenase Total Protein 7.5 Albumin 4.1 Globulin 3.4 Albumin/Globulin Ratio 1.2 SARS-CoV-2 (PCR) Negative 10/14/20 10/14/20 10/15/20 23:05 23:05 05:30 WBC 11.5 H RBC 3.79 L Hgb 12.0 Hct 35.7 L MCV 94.0 MCH 31.5 MCHC 33.5 RDW 13.4 Plt Count 195 Neut % (Auto) 68.9 Lymph % (Auto) 21.8 L [place] % (Auto) 7.4 Eos % (Auto) 1.3 L Baso % (Auto) 0.6 Neut # (Auto) 7900 H Lymph # (Auto) 2500 [place] # (Auto) 900 Eos # (Auto) 100 Baso # (Auto) 100 Sodium 138 138 Potassium 4.2 3.9 Chloride 108 H 107 Carbon Dioxide 23 26 BUN 14 15 Creatinine 0.70 0.66 Estimated GFR > 60.0 > 60.0 BUN/Creatinine Ratio 20.0 22.7 H Glucose 104 H 92 Uric Acid 4.9 Calcium 9.6 9.0 Total Bilirubin 0.1 L 0.2 AST 35 29 ALT 31 27 Alkaline Phosphatase 151 H 135 H Lactate Dehydrogenase 511 Total Protein 6.8 6.1 L Albumin 3.7 3.4 L Globulin 3.1 2.7 Albumin/Globulin Ratio 1.2 1.3 SARS-CoV-2 (PCR) Assessment & Plan Assessment and Plan (1) Gestational hypertension: Problem details: This patient presents in is admitted for -induced hypertension. Review of patient's chart indicates history of pre elevated blood pressures, the patient is unaware of any history of diagnosed hypertension. Patient declines evaluation for urine protein, complicating diagnosis of preeclampsia versus gestational hypertension. Overall, patient is responding well to nifedipine, has normal PIH labs, is feeling well today, declines Hep-Lock IV, and strongly desires discharge home. Patient and partner willing to closely monitor blood pressures, live near Hospital, and are willing to return if blood pressures again become increased or if symptoms develop. Precautions were discussed at length. We discussed at length that the patient would be safer if she remains in-house until blood pressure control was assured, and patient and partner vocalized understanding of this and of the risks of acutely worsening blood pressure at home, seizures, stroke. Precautions stressed including returning to hospital for blood pressures of 160 systolic or 110 diastolic, headaches unresponsive to Tylenol, visual changes or spots, malaise or nausea, right upper quadrant pain, chest pain or trouble breathing, or any other concerning symptoms. Patient to follow up at beginning of next week with Dr. Crain. Status: Acute Time Spent With Patient Time: Total time spent is greater than 50% in coordination of care (as documented) at patient's floor/unit and/or counseling patient: Time with patient: 25 - 35 minutes
== END 2020-10-15 11:40 | disposition home or self-care (01) ==
PROVIDERS: Obstetrics & Gynecology; Admitting Provider Family Medicine; PCP Midwife; Referring Provider Family Medicine; Visit Provider Family Medicine
DX: O16.5 Unspecified maternal hypertension, complicating the puerperium (principal); R51.9 Headache, unspecified; R60.9 Edema, unspecified; Z20.822 Contact with and (suspected) exposure to COVID-19
CPT/HCPCS: 36415; 80053; 83615; 84550; 85025; 87635; C9803; G0378; G0379

== ENCOUNTER 2020-10-28 10:51 | Emergency (ER) | payer BC, SELFPAY ==
[2020-10-14 19:31] VITALS: BMI 30.6
[2020-10-28 11:00] VITALS: PULSE 89; O2SAT 100
[2020-10-28 11:04] VITALS: BP 160/89; PULSE 92; RESP 18; TEMP 37.1; O2SAT 98; BMI 27.4
[2020-10-28 11:21] LABS: Add Manual Diff / Slide Review NO; Basophils Absolute Auto 0 /uL (0-100); Basophils Percent Auto 0.3 % (0-2); Eosinophils Absolute Auto 100 /uL (0-450); Eosinophils Percent Auto 1.9 % (2-4); Hematocrit 41.9 % (36-46); Lymphocytes Absolute Auto 2000 /uL (1100-4500); Lymphocytes Percent Auto 31.6 % (25-40); Mean Corpuscular HGB Conc 33.4 % (30-36); Mean Corpuscular Hemoglobin 31.1 PG (26-34); Mean Corpuscular Volume 92.9 fL (80-100); Monocytes Absolute Auto 400 /uL (0-900); Monocytes Percent Auto 6.4 % (3-14); Neutrophils Absolute Auto 3800 /uL (1500-7000); Neutrophils Percent Auto 59.8 % (50-75); Platelet Count 263 X10^3/uL (150-400); Red Blood Cell Count 4.51 X10^6/uL (4.0-5.2); Red Cell Distribution Width 13.2 % (11.6-14.8); White Blood Cell Count 6.4 X10^3/uL (4.5-11.0)
--- NOTE | 2020-10-28 11:29 | ED.GENADULT ---
HPI - General Adult General Chief complaint: Abdominal Pain Stated complaint: POSSIBLE POST- PRE-ECLAMPSIA Time Seen by Provider: 10/28/20 10:54 Source: patient Mode of arrival: Family Vehicle Limitations: no limitations History of Present Illness HPI narrative: Patient is a 30-year-old female. Otherwise healthy. approximately 3 weeks . She delivered early. She took cast oil in order to start her labor. She had a vaginal delivery. Afterwards had elevated blood pressures. During her 3 day visit by her devulcanizer operator at home it was noticed that her blood pressure was elevated. She was sent to her primary doctor's office. She was admitted to the hospital at that point overnight because of elevated blood pressures. She was started on nifedipine. She is taking this twice a day. Has been taking it every day. She states that home her blood pressures are normally 120s systolic in the morning and 140 systolic in the evenings. She thought that last evening he was even better than this. She comes to the emergency department today for occasional right upper quadrant and left upper quadrant abdominal tenderness. She is not having and at the time of my exam. She did take her blood pressure medicines this morning. She was concerned about the discomfort that she was having a wanted to get checked out. Related Data Home Medications Medication Instructions Recorded Confirmed 1 tab PO DAILY 02/12/18 10/14/20 Previous Rx's Medication Instructions Recorded docusate sodium 250 mg PO DAILY #30 cap 02/13/18 metoclopramide HCl [Reglan] 10 mg PO Q6H PRN #30 tab 10/15/20 nifedipine 30 mg tablet,extended 30 mg PO BID #60 tab 10/15/20 release Allergies Allergy/AdvReac Type Severity Reaction Status Date / Time No Known Drug Allergies Allergy Verified 10/14/20 22:41 Review of Systems Constitutional Constitutional: Denies fatigue, Denies fever(s) and Denies headache(s) Eyes Eyes: Denies change in vision ENT Ears, Nose, Mouth, and Throat: Denies headache(s) Cardiovascular Cardiovascular: Denies chest pain and Denies dyspnea Respiratory Respiratory: Denies dyspnea Gastrointestinal Gastrointestinal: Reports abdominal pain, Denies nausea and Denies vomiting Genitourinary Genitourinary: Denies dysuria Genitourinary: Denies dysuria Comments: Very slight vaginal discharge Musculoskeletal Musculoskeletal: Denies arthralgias and Denies myalgias Integumentary/Breasts Skin/Breast: Denies rash Neurologic Neurologic: Denies behavioral changes and Denies headache(s) Psychiatric Psychiatric: Denies behavioral changes Endocrine Endocrine: Denies fatigue Hematologic/Lymphatic On Anticoagulants: No Allergic/Immunologic Allergic/Immunologic: Denies urticaria Patient History Medical History Anxiety Chicken pox Spontaneous vaginal delivery Family History Other Diabetes mellitus Hypertension Social History marital status: household members: spouse and children Smoking Status: Never smoker alcohol intake: former substance use type: does not use Smoking Status: Never smoker alcohol intake frequency: 0-2 drinks per day Substance Use Type: does not use Exam Initial Vital Signs Initial Vital Signs: Vital Signs Pulse Rate 89 10/28/20 11:00 Pulse Oximetry 100 10/28/20 11:00 Const General: cooperative and comfortable Limitations: mental status not altered HENMT Head: normal to inspection and normocephalic Resp Effort & Inspection: normal respiratory effort Auscultation: clear to auscultation bilaterally Cardio Rate: regular rate Rhythm: regular rhythm GI Inspection: non-distended Palpation: soft, No firm and tender (Slight tenderness right upper quadrant) Skin Lesions: no lesions Rashes: no rashes Neuro General: patient alert and patient awake Cognition: normal cognition Speech: speech normal Extrem General: normal to inspection, capillary refill normal and No edema Psych Appearance: grossly normal and well kempt Course Orders Ordered: ED Orders 10/28/20 11:14 Complete Blood Count AUTO DIFF Stat Comprehensive Metabolic Panel Stat 10/28/20 11:18 Lipase Stat 10/28/20 11:35 Urinalysis and Microscopic Stat 10/28/20 11:51 US abdomen limited Stat Vital Signs Vital signs: Vital Signs - 8 hr 10/28/20 11:00 10/28/20 11:04 10/28/20 11:31 Temperature 98.8 F Pulse Rate 89 92 H 85 Respiratory Rate 18 Blood Pressure 160/89 H Pulse Oximetry 100 98 100 10/28/20 11:49 10/28/20 11:50 Temperature Pulse Rate 86 80 Respiratory Rate 20 18 Blood Pressure 120/86 120/86 Pulse Oximetry 100 99 Medical Decision Making Medical Records Medical records reviewed: Yes I reviewed the patient's medical records. Lab Data Lab results reviewed: Yes I reviewed the patient's lab results. Result diagrams: 10/28/20 11:14 10/28/20 11:14 Labs: Lab Results 10/28/20 10/28/20 10/28/20 Range/Units 11:14 11:14 11:18 WBC 6.4 (4.5-11.0) X10^3/uL RBC 4.51 (4.0-5.2) X10^6/uL Hgb 14.0 (12.0-16.0) g/dL Hct 41.9 (36-46) % MCV 92.9 (80-100) fL MCH 31.1 (26-34) PG MCHC 33.4 (30-36) % RDW 13.2 (11.6-14.8) % Plt Count 263 (150-400) X10^3/uL Neut % (Auto) 59.8 (50-75) % Lymph % (Auto) 31.6 (25-40) % [place] % (Auto) 6.4 (3-14) % Eos % (Auto) 1.9 L (2-4) % Baso % (Auto) 0.3 (0-2) % Neut # (Auto) 3800 (5269-7722) /uL Lymph # (Auto) 2000 (5533-4310) /uL [place] # (Auto) 400 (0-900) /uL Eos # (Auto) 100 (0-450) /uL Baso # (Auto) 0 (0-100) /uL Sodium 139 (137-145) mmol/L Potassium 4.5 (3.4-5.1) mmol/L Chloride 106 (98-107) mmol/L Carbon Dioxide 25 (22-32) mmol/L BUN 16 (7-17) mg/dL Creatinine 0.71 (0.52-1.04) mg/dL Estimated GFR > 60.0 (>60) mL/min BUN/Creatinine Ratio 22.5 H (6-22) Glucose 93 (70-100) mg/dL Calcium 10.2 (8.4-10.2) mg/dL Total Bilirubin 0.2 (0.2-1.3) mg/dL AST 40 H (14-36) IU/L ALT 40 H (<35) IU/L Alkaline Phosphatase 167 H (38-126) U/L Total Protein 7.8 (6.3-8.2) g/dL Albumin 4.6 (3.5-5.0) g/dL Globulin 3.2 (1.7-4.1) g/dL Albumin/Globulin Ratio 1.4 (1.0-2.8) Lipase 95 (23-300) U/L Urine Color Urine Appearance Urine pH (4.5-8.0) Ur Specific [place] (1.000-1.035) Urine Protein (Negative) Urine Glucose (UA) (Negative) g/dL Urine Ketones (NEGATIVE) Urine Occult Blood (Negative) Urine Nitrate (Negative) Urine Bilirubin (NEGATIVE) Urine Urobilinogen (0.2) E.U./dL Ur Leukocyte Esterase (NEGATIVE) Urine RBC (0-5/HPF) Urine WBC (0-5/HPF) Urine Bacteria (None) Ur Culture Indicated? 10/28/20 Range/Units 11:35 WBC (4.5-11.0) X10^3/uL RBC (4.0-5.2) X10^6/uL Hgb (12.0-16.0) g/dL Hct (36-46) % MCV (80-100) fL MCH (26-34) PG MCHC (30-36) % RDW (11.6-14.8) % Plt Count (150-400) X10^3/uL Neut % (Auto) (50-75) % Lymph % (Auto) (25-40) % [place] % (Auto) (3-14) % Eos % (Auto) (2-4) % Baso % (Auto) (0-2) % Neut # (Auto) (5426-7167) /uL Lymph # (Auto) (0595-2060) /uL [place] # (Auto) (0-900) /uL Eos # (Auto) (0-450) /uL Baso # (Auto) (0-100) /uL Sodium (137-145) mmol/L Potassium (3.4-5.1) mmol/L Chloride (98-107) mmol/L Carbon Dioxide (22-32) mmol/L BUN (7-17) mg/dL Creatinine (0.52-1.04) mg/dL Estimated GFR (>60) mL/min BUN/Creatinine Ratio (6-22) Glucose (70-100) mg/dL Calcium (8.4-10.2) mg/dL Total Bilirubin (0.2-1.3) mg/dL AST (14-36) IU/L ALT (<35) IU/L Alkaline Phosphatase (38-126) U/L Total Protein (6.3-8.2) g/dL Albumin (3.5-5.0) g/dL Globulin (1.7-4.1) g/dL Albumin/Globulin Ratio (1.0-2.8) Lipase (23-300) U/L Urine Color Yellow Urine Appearance Clear Urine pH 7.0 (4.5-8.0) Ur Specific [place] 1.010 (1.000-1.035) Urine Protein Negative (Negative) Urine Glucose (UA) Negative (Negative) g/dL Urine Ketones Negative (NEGATIVE) Urine Occult Blood 3+ H (Negative) Urine Nitrate Negative (Negative) Urine Bilirubin Negative (NEGATIVE) Urine Urobilinogen 0.2 (0.2) E.U./dL Ur Leukocyte Esterase Negative (NEGATIVE) Urine RBC 1-5/hpf (0-5/HPF) Urine WBC None seen (0-5/HPF) Urine Bacteria Occasional (0-1) (None) Ur Culture Indicated? Cult not indicated Imaging Data US - abdomen: Radiologist's Impression: [address] [id number] ReportSigned Patient: Mandy Guerrero R#: [id number]: 1990Acct:[id number]/Sex: 30 / FDate of Service: 10/28/20Loc: EDAccession Number: [id number] Procedure: US abdomen limited Ordering Provider: Rolando Grijalva D.O. PROCEDURE: US ABDOMEN LIMITED INDICATIONS: RIGHT UPPER QUADRANT PAIN TECHNIQUE: Real-time scanning was performed of the abdominal and retroperitoneal organs, with image documentation. COMPARISON: None. FINDINGS: Liver: Liver is normal in size and homogeneous in echotexture. Gallbladder: Gallbladder is mildly contracted but otherwise normal in sonographic appearance without gallstones, gallbladder wall thickening, pericholecystic fluid, or abnormal sonographic Mar's. Biliary ducts: Intrahepatic bile ducts are non-dilated. Extrahepatic bile duct caliber measures 4 mm. Normal is 6-7 mm or less in diameter, or 10 mm or less post-cholecystectomy. Pancreas: Visualized portions of the pancreas are sonographically normal. Miscellaneous: No free abdominal fluid. IMPRESSION: Abdomen without acute sonographic abnormalities. Specifically, no evidence for cholelithiasis or acute cholecystitis. Normal appearance of the pancreas. Dictated by: Benny Trejo M.D. on 10/28/2020 at 12:26 Approved by: Benny Trejo M.D. on 10/28/2020 at 12:28 [facility] Narrative Medical decision making narrative: Patient's blood pressure today responded appropriately to rest in time here in the ER. She does have a slight elevation in her LFTs however she has had this elevation in the past. Ultrasound shows no gallbladder pathology. I did discuss the case with Dr. Crain who recommended patient continue on her current dose of nifedipine and keep her scheduled follow-up appointment next week. Patient was given return precautions and follow-up instructions. She expressed understanding and agreement. Discharge Plan Departure Patient Disposition: Home Clinical Impression: Pre-eclampsia, Abdominal pain Instructions: Pre-eclampsia Activity Restrictions/Additional Instructions: Recommend you continue all of your medications as directed and keep your follow-up appointment next week with Dr. Crain. Take your blood pressure at home like we discussed. Return to the emergency department for any new or worsening symptoms Prescriptions: No Action nifedipine 30 mg tablet extended release 30 mg PO BID Qty: 60 RF: 1 28-800 mg-mcg Tablet 1 tab PO DAILY RF: 0 docusate sodium 250 mg Capsule 250 mg PO DAILY Qty: 30 RF: 0 metoclopramide HCl [Reglan] 10 mg tablet 10 mg PO Q6H PRN (Reason: headache) Qty: 30 RF: 0 Referrals: Amada White CNM [Primary Care Provider] -
[2020-10-28 11:31] VITALS: PULSE 85; O2SAT 100
[2020-10-28 11:31] LABS: Alanine Aminotransferase 40 IU/L (<35); Albumin 4.6 g/dL (3.5-5.0); Albumin Globulin Ratio 1.4 (1.0-2.8); Alkaline Phosphatase 167 U/L (38-126); Aspartate Aminotransferase 40 IU/L (14-36); BUN Creatinine Ratio 22.5 (6-22); Bilirubin Total 0.2 mg/dL (0.2-1.3); Blood Urea Nitrogen 16 mg/dL (7-17); Calcium 10.2 mg/dL (8.4-10.2); Carbon Dioxide 25 mmol/L (22-32); Chloride 106 mmol/L (98-107); Estimated Glomerular Filt Rate > 60.0 mL/min (>60); Globulin 3.2 g/dL (1.7-4.1); Glucose 93 mg/dL (70-100); HEMOLYSIS < 15 (0-50); Potassium 4.5 mmol/L (3.4-5.1); Sodium 139 mmol/L (137-145); Total Protein 7.8 g/dL (6.3-8.2)
[2020-10-28 11:40] LABS: Lipase 95 U/L (23-300)
[2020-10-28 11:49] VITALS: BP 120/86; PULSE 86; RESP 20; O2SAT 100
[2020-10-28 11:50] VITALS: BP 120/86; PULSE 80; RESP 18; O2SAT 99
--- NOTE | 2020-10-28 11:51 | DI.US.S_ITS ---
PROCEDURE: US ABDOMEN LIMITED INDICATIONS: RIGHT UPPER QUADRANT PAIN TECHNIQUE: Real-time scanning was performed of the abdominal and retroperitoneal organs, with image documentation. COMPARISON: None. FINDINGS: Liver: Liver is normal in size and homogeneous in echotexture. Gallbladder: Gallbladder is mildly contracted but otherwise normal in sonographic appearance without gallstones, gallbladder wall thickening, pericholecystic fluid, or abnormal sonographic Mar's. Biliary ducts: Intrahepatic bile ducts are non-dilated. Extrahepatic bile duct caliber measures 4 mm. Normal is 6-7 mm or less in diameter, or 10 mm or less post-cholecystectomy. Pancreas: Visualized portions of the pancreas are sonographically normal. Miscellaneous: No free abdominal fluid. IMPRESSION: Abdomen without acute sonographic abnormalities. Specifically, no evidence for cholelithiasis or acute cholecystitis. Normal appearance of the pancreas. Dictated by: Benny Trejo M.D. on 10/28/2020 at 12:26 Approved by: Benny Trejo M.D. on 10/28/2020 at 12:28
[2020-10-28 11:54] LABS: WBC Urine None Seen (0-5/HPF)
[2020-10-28 11:56] LABS: Appearance Urine UA CLEAR; Bilirubin Urine UA NEGATIVE (NEGATIVE); Color Urine UA YELLOW; Glucose Urine UA NEGATIVE (Negative); Ketones Urine UA NEGATIVE (NEGATIVE); Leukocyte Esterase Urine UA NEGATIVE (NEGATIVE); Nitrite Urine UA NEGATIVE (Negative); Occult Blood Urine UA 3+ (Negative); Protein Urine UA NEGATIVE (Negative); Urobilinogen Urine UA 0.2 E.U./dL (0.2)
[2020-10-28 12:14] LABS: Bacteria Urine Occasional (0-1); Culture Indicated Urine Cult Not Indicated; RBC Urine 1-5/HPF (0-5/HPF)
== END 2020-10-28 13:11 | disposition home or self-care (01) ==
PROVIDERS: Emergency Provider Emergency Medicine; PCP Midwife
DX: R10.9 Unspecified abdominal pain (principal)
CPT/HCPCS: 36415; 76705; 80053; 81001; 83690; 85025; 99283